=== PATIENT | male | born 1985 | race Caucasian/White ===

== ENCOUNTER 2017-03-01 17:29 | Emergency (ER) | payer OTHER ==
[~2017-03-01] VITALS: Ht 180.3 cm; Wt 97.7 kg
[~2017-03-01 17:29] MED LIST: AMBIEN 10MG10 MG PO; BACTRIM DS 8001 TAB PO; EXCEDRIN1 TAB PO; FLEXERIL 1010 MG/TAB PO; FLOXIN 10 ML10 ML OT; IMITREX ST6 MG/0.5 M SC; INDOCIN 25MG CA25 MG PO; LUNESTA2 MG PO; LYRICA 150MG C150 MG PO; MAXALT5 MG PO; MOBIC15 MG PO; MOBIC7.5 M1 PO; NEURONTIN300 MG PO; NEURONTIN300 MG/CAP PO; NORCO 325 MG-51 TAB; NUCYNTA75 MG PO; OMEGA 31000 MG PO; PERCOCET 325 MG1 TAB PO; PROPRANOLOL ER80 MG PO; TOPAMAX25 MG PO; TORADOL30 MG/ML IM; TREXIMET PO; ULTRAM 50MG TAB50 MG; ULTRAM ER100 MG PO; VIT D-3; VITAMIN D2000 I1 PO; VITAMIN D32000 I1 PO
[2017-03-01 17:35] VITALS: TEMP 98.2
[2017-03-01 18:16] LABS: BASO % 0.4 % (0.0-2.0); EOS # 0.2 (0.0-0.7); EOS % 1.9 % (0-4.0); GRAN # 5.8 (1.4-6.5); GRAN % 61.1 % (42.2-75.2); HEMATOCRIT 41.6 % (42.0-52.0); HEMOGLOBIN 14.7 g/dl (13.5-18.0); LYMPH % 31.4 % (20.0-51.0); MEAN CELL VOLUME 91 fl (80.0-100.0); MEAN CORPUSCULAR HEMOGLOBIN 32 pg (27.0-31.0); MEAN CORPUSCULAR HGB CONC 35 g/dl (33.0-37.0); MEAN PLATELET VOLUME 8.9 fl (7.4-10.4); MONO # 0.5 (0.1-0.6); MONO % 4.7 % (1.7-9.3); PLATELET COUNT 256 K/mm3 (130-400); RED BLOOD COUNT 4.55 M/mm3 (4.20-5.60); WHITE BLOOD COUNT 9.5 K/mm3 (4.8-10.8)
[2017-03-01 18:35] LABS: ADJUSTED CALCIUM 8.9 mg/dL (8.4-10.2); ALBUMIN 4.4 gm/dL (3.5-5.0); BILIRUBIN,TOTAL 0.7 mg/dL (0.0-1.0); C-REACTIVE PROTEIN 0.8 mg/dL (0.0-0.9); CALCIUM 9.2 mg/dL (8.4-10.2); CREATININE, serum 0.96 mg/dL (0.66-1.25); POTASSIUM 4.2 mmol/L (3.4-5.0); TOTAL PROTEIN 7.7 gm/dL (6.4-8.2)
[2017-03-01 18:46] LABS: PH 6 (5-8); SQUAMOUS EPITHELIAL 0-2 /hpf; URINE APPEARANCE Clear; URINE BILIRUBIN Negative (NEGATIVE); URINE BLOOD Negative (NEGATIVE); URINE COLOR Yellow; URINE GLUCOSE Negative (NEGATIVE); URINE KETONE Negative (NEGATIVE); URINE RBC 0-2 /hpf; URINE UROBILINOGEN Negative (NEGATIVE); URINE WBC 0-2 /hpf
[2017-03-01] MEDS ORDERED: PREDNISONE20 MG PO (19:50)
[2017-03-01 20:13] VITALS: BP 144/86; PULSE 83
== END 2017-03-01 20:15 | disposition home or self-care (01) ==
LOC: COL.ER 17:29
PROVIDERS: Physician Assistant
DX: R10.11 Right upper quadrant pain (principal); M54.89 Other dorsalgia; G89.29 Other chronic pain; Z79.891 Long term (current) use of opiate analgesic
CPT/HCPCS: J1170; J1885; J2550; J7030; J7512; Q9967

== ENCOUNTER 2018-09-05 21:47 | Emergency (ER) | payer OTHER ==
[~2018-09-05] VITALS: Ht 180.3 cm; Wt 90.9 kg
[~2018-09-05 21:47] MED LIST changes: +PREDNISONE20 MG PO
[2018-09-05] MEDS ORDERED: ZOFRAN 4MG T4 MG/TAB PO (22:13)
[2018-09-05] MEDS ORDERED: PROTONIX 40MG T40 MG PO (22:13)
[2018-09-05 22:39] LABS: BASO % 0.2 % (0.0-2.0); EOS # 0.1 (0.0-0.7); EOS % 0.5 % (0-4.0); GRAN # 6.8 (1.4-6.5); GRAN % 73.7 % (42.2-75.2); HEMATOCRIT 32.4 % (42.0-52.0); HEMOGLOBIN 11.1 g/dl (13.5-18.0); LYMPH # 1.9 (1.2-3.4); LYMPH % 20.1 % (20.0-51.0); MEAN CELL VOLUME 88 fl (80.0-100.0); MEAN CORPUSCULAR HEMOGLOBIN 30 pg (27.0-31.0); MEAN CORPUSCULAR HGB CONC 34 g/dl (33.0-37.0); MEAN PLATELET VOLUME 9.3 fl (7.4-10.4); MONO # 0.5 (0.1-0.6); MONO % 5.1 % (1.7-9.3); PLATELET COUNT 188 K/mm3 (130-400); RED BLOOD COUNT 3.68 M/mm3 (4.20-5.60)
[2018-09-05 22:49] LABS: ALBUMIN 3.9 gm/dL (3.5-5.0); BILIRUBIN,TOTAL 0.4 mg/dL (0.0-1.0); CALCIUM 8.9 mg/dL (8.4-10.2); CREATININE, serum 1.04 mg/dL (0.66-1.25); POTASSIUM 3.7 mmol/L (3.4-5.0); TOTAL PROTEIN 6.7 gm/dL (6.4-8.2)
[2018-09-05] MEDS ORDERED: ZANTAC 150150 MG PO (22:52)
[2018-09-06 02:05] VITALS: BP 124/69; PULSE 65
[2018-09-08] MEDS ORDERED: PROTONIX 40MG T40 MG PO (11:31)
== END 2018-09-06 02:05 | disposition home or self-care (01) ==
LOC: COL.ER 21:47
PROVIDERS: Emergency Medicine
DX: K52.9 Noninfective gastroenteritis and colitis, unspecified (principal); K92.2 Gastrointestinal hemorrhage, unspecified; Z87.891 Personal history of nicotine dependence
CPT/HCPCS: C9113; J2405; J2550; J7030